=== PATIENT | male | born 1970 | race Asian ===

== ENCOUNTER 2021-12-02 14:11 | Emergency (ER) | payer OTHER, SELFPAY ==
--- NOTE | ~2021-12-02 | XR_ITS ---
EXAMINATION: XR FINGER, RIGHT CLINICAL INFORMATION: Lacerations distal 3rd and 4th digits. COMPARISON: None TECHNIQUE: AP view right hand and 2 views of the digits are obtained for 3 views. FINDINGS: There is prior amputation index finger at level of PIP joint. Some fine mineralization is present immediately distal to the head proximal phalanx. There are subtle soft tissue defects distal third and fourth fingers consistent with the history of laceration. There is no visible fracture or dislocation or destructive process. No definite radiopaque soft tissue foreign body. No periostitis. The remainder the bony structures are unremarkable. XR/XR finger RT min 2V IMPRESSION: No acute fracture or dislocation or destructive process.
[2021-12-02 14:47] VITALS: BP 153/98; RESP 19; TEMP 36.6; O2SAT 96; BMI 25.7
[2021-12-02] MEDS: Lidocaine HCl 2 % MPF 5 ML VIAL 10 ML SUBCUT (19:48)
[2021-12-02] MEDS: Diphth,Pertus(ACell),Tet Adult 0.5 ML SYRINGE IM (19:49)
--- NOTE | 2021-12-02 20:02 | ED.WOUNDLAC ---
HPI - Wound/Laceration General Chief Complaint: Wound/Laceration Stated Complaint: hand lac Time Seen by Provider: 12/02/21 18:36 Source: patient and supervisor hide house ([facility]) Mode of arrival: ambulatory Limitations: language barrier ([place]-used video supervisor [facility] services) History of Present Illness HPI narrative: 51-year-old male was [id number] here with reports of laceration to the right hand the 3rd and 4th digit which occurred while working. Patient tells me he was using a meat cutter cutting some chicken with his hand slipped causing him to cut his right hand 3rd and 4th digits. Patient tetanus status is unknown. He denies any associated numbness, tingling or weakness of the extremities. Related Data Previous Rx's Medication Instructions Recorded ibuprofen 600 mg tablet 600 mg PO Q8H PRN #20 tab 12/02/21 oxycodone 5 mg tablet 5 mg PO Q8H PRN #5 tab 12/02/21 Allergies Allergy/AdvReac Type Severity Reaction Status Date / Time No Known Allergies Allergy Verified 12/02/21 18:36 Review of Systems Review of Systems: Yes all other systems are reviewed and are negative Constitutional: Constitutional: Reports no additional constitutional complaints, Denies body ache(s), Denies chills, Denies fever(s), Denies headache(s) and Denies weakness Eyes: Eyes: Reports no additional eye complaints and Denies change in vision ENT: Reports system reviewed and no additional complaints, except as documented, Denies dizziness, Denies headache(s), Denies nasal congestion, Denies nasal discharge and Denies neck pain Cardiovascular: Cardiovascular: Reports no additional cardiovascular complaints, Denies chest pain, Denies leg edema and Denies dyspnea Respiratory: Respiratory: Reports no additional respiratory complaints, Denies cough and Denies dyspnea Gastrointestinal: Gastrointestinal: Reports no additional gastrointestinal complaints, Denies abdominal pain, Denies diarrhea, Denies nausea and Denies vomiting Genitourinary: Genitourinary: Denies urinary incontinence Musculoskeletal: Musculoskeletal: Reports no additional musculoskeletal complaints, Denies back pain, Denies arthralgias, Denies joint swelling, Denies neck pain, Denies numbness and Denies tingling Integumentary/Breasts: Skin/Breast: Reports system reviewed and no additional complaints, except as docu and Denies rash Comments: +laceration Neurologic: Reports system reviewed and no additional complaints, except as documented, Denies Abnormal speech present, Denies dizziness, Denies headache(s), Denies numbness, Denies tingling and Denies weakness PMFSH Past Medical History Attestation statement: The following information was validated with the patient. Source: old records reviewed and nursing notes reviewed Social History Social History Advance Directives: No Advance Directives Information Provided: Yes Physical Exam Vital Signs: Vital Signs: Last Vital Signs Temp 98 F 12/02/21 14:47 Resp 19 12/02/21 14:47 BP 153/98 H 12/02/21 14:47 Pulse Ox 96 12/02/21 14:47 BMI result Body Mass Index 25.7 Const: General: cooperative, healthy appearing, comfortable and no acute distress Orientation/consciousness: patient oriented x3 Limitations: no limitations HENMT: Head: Yes normal to inspection Ears: hearing grossly normal bilaterally General nose exam: Normal external nose present Face and sinus: Yes normal facial exam Mouth: Normal oral and palatal mucosa present Throat: Yes posterior oropharynx normal Eyes: General: appearance normal, both eyes and all related structures Pupils: Equal, round and reactive pupils present Neck: Neck: Yes normal visual inspection Chest: Chest palpation & inspection: normal inspection of the chest Resp: Effort & Inspection: normal respiratory effort Auscultation: clear to auscultation bilaterally Cardio: Rate: regular rate Rhythm: regular rhythm Peripheral pulses: Peripheral pulses 2+ throughout GI: Inspection: Yes normal to inspection Palpation (GI): Soft to palpation and nontender Auscultation: normal bowel sounds Back/Spine/Pelvis: Thoracic/Lumbar Spine: thoracic and lumbar spine normal to inspection Skin: General skin exam: no rashes or lesions noted Neuro: General: patient oriented x3, no focal motor deficits and normal sensation to monofilament Cranial nerves: Yes Equal, round and reactive pupils present Cognition (Neuro): normal cognition Speech: No Abnormal speech present Gait exam (Neuro): Normal gait present Motor exam (neuro): 5/5 motor strength present throughout Extrem: Other: There are lacerations present to the 3rd and 4th digits 3rd digit-to the distal tip there is a 2 cm laceration. Bleeding is controlled. The nail is not involved. Full range of motion of extremity. Neurovascularly intact distally. 4th digit-to the distal tip there is a 3 cm laceration. Bleeding is controlled. The nail is not involved. Full range of motion of extremity. Neurovascularly intact distally General: Yes normal to inspection Course Course Course Narrative: 51-year-old male [id number] here with lacerations to the 3rd and 4th digit. X-ray show no bony abnormality See procedure note for wound repair Tetanus will be updated. Reviewed worrisome signs and symptoms of when to return to the emergency department. Comfortable discharge home. MDM - Wound/Laceration Differential Diagnosis Differential diagnosis: Likely laceration Medical Records Attestation: I reviewed the patient's medical records. Lab Data Attestation: I reviewed the patient's lab results. Imaging Data hand xray: Attestation: I personally reviewed and interpreted this imaging study as follows: Radiologist's impression: [address] [address] XRay Report Signed Patient: Becki Sutherland MR#: [id number] : 1970 Acct:[id number] Age/Sex: 51 / M ADM Date: 12/02/21 Loc: .ED Attending Dr: Ordering Physician: Generic ED Physician Date of Service: 12/02/21 Procedure(s): XR finger RT min 2V Accession Number(s): [id number] cc: Generic ED Physician~ EXAMINATION: XR FINGER, RIGHT CLINICAL INFORMATION: Lacerations distal 3rd and 4th digits. COMPARISON: None? TECHNIQUE: AP view right hand and 2 views of the digits are obtained for 3 views. FINDINGS: There is prior amputation index finger at level of PIP joint. Some fine mineralization is present immediately distal to the head proximal phalanx. There are subtle soft tissue defects distal third and fourth fingers consistent with the history of laceration. There is no visible fracture or dislocation or destructive process. No definite radiopaque soft tissue foreign body. No periostitis. The remainder the bony structures are unremarkable.? XR/XR finger RT min 2V IMPRESSION: No acute fracture or dislocation or destructive process. Dictated By: Shun Martinez MD Procedures Laceration Laceration 1: Site: hand (3rd digit) Side (If applicable): right Size (cm): 2 Description: linear Depth: simple, single layer Local Anesthetic: other anesthetic (digital block) Amount of anesthesia used (mL): 5 Pre-repair: wound explored, irrigated extensively and deep structures intact Skin layer closed with: vicryl Size (cm): 4-0 Number of sutures: 4 Technique: simple, interrupted Laceration 2: Site: hand (4th digit ) Side (If applicable): right Size (cm): 3 Description: linear Depth: simple, single layer Local Anesthetic: other anesthetic (digital block) Amount of anesthesia used (mL): 5 Pre-repair: wound explored, irrigated extensively and deep structures intact Skin layer closed with: vicryl Size (cm): 4-0 Number of sutures: 5 Technique: simple, interrupted Nerve Block Nerve Block 1: Time out performed: No Local Anesthetic: lidocaine 2% and other anesthetic Amount of anesthesia used (mL): 10 Side: right Nerve Blocks: digital Procedure Successful: Yes Patient Tolerated Procedure: well Complications: none Discharge Plan Discharge Clinical Impression: Laceration Patient Disposition: Home, Self-Care Instructions: Finger Laceration (ED) Additional Instructions: Return in 7 days to have the sutures removed Keep the bandage on until tomorrow then remove and wash the area with soap and water. Apply a thin layer of antibiotic ointment which you can purchase at the drug store. Look for the name polysporin or neosporin Keep the site covered if you are working. Do NOT soak the fingers in water so no washing dishes. You may shower normally and please wash your hands daily with soap and water. Return for redness, fever, drainage from the site. Prescriptions: New oxycodone 5 mg tablet 5 mg PO Q8H PRN (Reason: pain) Qty: 5 RF: 0 ibuprofen 600 mg tablet 600 mg PO Q8H PRN (Reason: pain) Qty: 20 RF: 0 Referrals: Physician,Unknown J [Primary Care Provider] - 2 days Interventions: ED Discharge Assessment Last Done: 12/02/21 19:55 Discharge Date/Time: 12/02/21 19:56
== END 2021-12-02 19:56 | disposition home or self-care (01) ==
PROVIDERS: Emergency Provider Emergency Medicine
DX: S61.212A Laceration without foreign body of right middle finger without damage to nail, initial encounter (principal); S61.214A Laceration without foreign body of right ring finger without damage to nail, initial encounter; W31.82XA Contact with other commercial machinery, initial encounter; Y93.G1 Activity, food preparation and clean up; Y92.511 Restaurant or cafe as the place of occurrence of the external cause; Y99.0 Civilian activity done for income or pay
CPT/HCPCS: 12042; 73140; 90471; 90715; 99283; 99284

== ENCOUNTER 2021-12-10 12:33 | Emergency (ER) | payer SELFPAY ==
[2021-12-10 13:35] VITALS: BP 148/89; PULSE 82; RESP 18; TEMP 36.8; O2SAT 98; BMI 24.0
--- NOTE | 2021-12-10 14:58 | ED.RECABL ---
HPI - Recheck/Abnormal Lab/Rx General Chief Complaint: General Medical Stated Complaint: stitch removal Time Seen by Provider: 12/10/21 14:56 Source: patient Mode of arrival: ambulatory Limitations: no limitations History of Present Illness complaint: wound re-check and suture/staple removal Initial visit (ago): day(s) (12/02) Initial visit for: laceration Returns today for: staple/stitch removal Symptoms since prior visit: no new symptoms Context: planned re-check Associated symptoms: none Related Data Previous Rx's Medication Instructions Recorded ibuprofen 600 mg tablet 600 mg PO Q8H PRN #20 tab 12/02/21 oxycodone 5 mg tablet 5 mg PO Q8H PRN #5 tab 12/02/21 Allergies Allergy/AdvReac Type Severity Reaction Status Date / Time No Known Allergies Allergy Verified 12/02/21 18:36 Review of Systems Review of Systems: Constitutional : No Fever, No Chills, Cardiovascular : No Chest Pain, No SOB Respiratory : No Dyspnea Gastrointestinal : No abdominal pain Musculoskeletal : No Joint Swelling Skin : No rash, healing pos skin laceration Neuro : No Weakness, No Numbness PMFSH Past Medical History Medical History No known health problems Social History Social History (Updated 12/10/21 @ 15:17 by Susanne Peacock DO) Patient Tobacco Use Status: Never used Tobacco Advance Directives: No Advance Directives Information Provided: No Physical Exam Vital Signs: Vital Signs: Last Vital Signs Temp 98.2 F 12/10/21 13:35 Pulse 82 12/10/21 13:35 Resp 18 12/10/21 13:35 BP 148/89 H 12/10/21 13:35 Pulse Ox 98 12/10/21 13:35 BMI result Body Mass Index 24.0 Appearance: Alert. Oriented X3. No acute distress. Eyes: Pupils equal, round and reactive to light. ENT: Pharynx normal. Neck: Normal inspection. Neck supple. CVS: Pulses normal. Respiratory: No respiratory distress. Abdomen: atraumatic Skin: Skin warm and dry. Normal skin color. Normal skin turgor. Extremities: No lower extremity edema. R hand 3rd digit calloused tips warm to touch no drainage no erythema sutures in place, 4th digit same appearance no signs of infection Neuro: Oriented X 3. No motor deficit. No sensory deficit. MDM - Recheck/Abnormal Lab/Rx MDM Narrative Medical decision making narrative: 51 yo male 8 days out from finger lacerations - healing well no signs of infection at this time will remove stitches and discuss wound care follow up - no complaints per patient Procedures Procedure Narrative Procedure Narrative: uncompliaced removal of 5 stitches from 3rd finger and 4 stitches from 4th finger - no drainage, healing wound though fingers are calloused, no erythema NV intact Discharge Plan Discharge Clinical Impression: Encounter for removal of sutures Patient Disposition: Home, Self-Care Instructions: Stitches Removal (ED) Additional Instructions: return to ED for any worsening symptoms or concerns monitor for redness, yellow drainage, fevers. keep area clean and dry and look out for infection rahul pan hkyinn , aareina celeste hkyinn , hpyarr hkyinnaatwat hcawng shannon lam . lavernibreanna tuttleyawwatsbillie ramirezestephania hartman Prescriptions: No Action oxycodone 5 mg tablet 5 mg PO Q8H PRN (Reason: pain) Qty: 5 RF: 0 ibuprofen 600 mg tablet 600 mg PO Q8H PRN (Reason: pain) Qty: 20 RF: 0
== END 2021-12-10 15:16 | disposition home or self-care (01) ==
PROVIDERS: Emergency Provider Emergency Medicine
DX: Z48.02 Encounter for removal of sutures (principal); S61.411D Laceration without foreign body of right hand, subsequent encounter; W45.8XXD Other foreign body or object entering through skin, subsequent encounter
CPT/HCPCS: 99283